=== PATIENT | female | born 1985 | race Hispanic/Latino ===

== ENCOUNTER 2016-10-23 09:46 | Emergency (ER) | payer MEDICAID, OTHER ==
[2016-10-23] MEDS ORDERED: Lidocaine 1% w/Epinephrine 1:100K 20 ML VIAL ONE (10:37)
[2016-10-23] MEDS ORDERED: Adacel (T-DAP) 0.5 ML VIAL ONE (11:45)
[2016-10-23] MEDS ORDERED: Sodium Chloride Irrig Solution 250 ML BOT ONE (16:25)
== END 2016-10-23 12:15 | disposition home or self-care (01) ==
LOC: MADERS 09:46
DX: S01.01XA Laceration without foreign body of scalp, initial encounter (principal); S51.012A Laceration without foreign body of left elbow, initial encounter; S51.011A Laceration without foreign body of right elbow, initial encounter; S61.421A Laceration with foreign body of right hand, initial encounter; V29.9XXA Motorcycle rider (driver) (passenger) injured in unspecified traffic accident, initial encounter
CPT/HCPCS: 12004; 90471; 90715; G0390; J2001